=== PATIENT | male | born 1965 | race Caucasian/White ===

== ENCOUNTER 2018-09-08 11:53 | Emergency (ER) | payer OTHER ==
[2018-09-08] MEDS: Tetan/Diph/Pertus SYR(Tdap)* 0.5 ML SYR(BOOSTRIX) use SYR IM ONE (12:46)
--- NOTE | 2018-09-08 12:46 | UC ---
Laceration HPI - HPI Summary HPI Summary: 53 year old male presents with laceration to L wrist after cutting trees near home. Patient believes wrist was cut by wood. unsure of last Tdap. no other medical problems. full ROM/ sensation of wrist - History Of Current Complaint Chief Complaint: UCLaceration Stated Complaint: LACERATION Time Seen by Provider: 09/08/18 12:07 Hx Obtained From: Patient, Family/Master Chef - mother Laceration Location: Wrist - left Mechanism Of Injury: FB Potential Onset/Duration: Sudden Onset Severity: Mild Pain Intensity: 3 Pain Scale Used: 0-10 Numeric Aggravating Factors: Nothing - Allergies/Home Medications Allergies/Adverse Reactions: Allergies Allergy/AdvReac Type Severity Reaction Status Date / Time No Known Allergies Allergy Verified 09/08/18 12:10 PMH/Surg Hx/FS Hx/Imm Hx Previously Healthy: Yes - Surgical History Surgical History: None - Social History Alcohol Use: Rare Substance Use Type: None Smoking Status (MU): Never Smoked Tobacco - Immunization History Most Recent Tetanus Shot: will need Review of Systems All Other Systems Reviewed And Are Negative: Yes Constitutional: Positive: Negative Skin: Positive: Bruising, Other - laceration wrist left Musculoskeletal: Positive: Arthralgia, Myalgia Neurological: Positive: Negative Psychological: Positive: Negative Is Patient Immunocompromised?: No Physical Exam Triage Information Reviewed: Yes Appearance: Well-Appearing, No Pain Distress, Well-Nourished Vital Signs: Initial Vital Signs Temp 97.9 F 09/08/18 12:06 Pulse 72 09/08/18 12:06 Resp 20 09/08/18 12:06 BP 140/87 09/08/18 12:06 Pulse Ox 98 09/08/18 12:06 Vital Signs Reviewed: Yes Musculoskeletal Exam: Normal - Left wrist, fingers Musculoskeletal: Positive: Strength Intact, ROM Intact - L wrist, fingers. Full sensation L hand., No Edema Neurological Exam: Normal Neurological: Positive: Other: - patient became diaphoretic and lightheaded during examination, no syncope- improved with water and supine, no furher episodes Psychological Exam: Normal Skin: Positive: Other - 4cm laceration L wrist, full thickness, tendons exposed however intact Procedures - Laceration/Wound Repair 1 Location: upper extremity - l wrist Anesthesia: 1.0%, Lido Length, Depth and Shape: 4cm x 1cm x 1 cm Laceration/Wound Explored: clean Closure: Single Layer Debridement: minimal Suture Type: Nylon Number of Sutures: 10 Layer Closure?: No Sterile Dressing Applied?: Yes Laceration Course/Dx - Course/Dx Course Of Treatment: area irrigated, examined with Dr Butler, discussed primary closure technique, edges approximated well, no complications, tolerated procedure well, minimal debridement, TdAP given, prophy abx given x 5 days, close follow up with PCP, ortho - Differential Dx - Laceration/Wound Differental Diagnoses: Joint Infection, Laceration - Diagnosis Provider Diagnosis: Laceration of left wrist without complication Discharge - Sign-Out/Discharge Documenting (check all that apply): Patient Departure All imaging exams completed and their final reports reviewed: No Studies - Discharge Plan Condition: Good Disposition: HOME Prescriptions: Cephalexin CAP* [Keflex CAP*] 500 mg PO TID #15 cap Patient Education Materials: Care For Your Stitches (ED), Laceration (ED) Referrals: No Primary Care Phys,NOPCP [Primary Care Provider] - Lisa Velasco MD [Medical Doctor] - 5 Days (follow up within 5 days for wound check, evaluation ) Additional Instructions: - Follow up with primary physician for wound check within 2-3 days - Continue wound dressing as shown - Go to ER with increased pain, decreased movement, increased swelling, fever - OK to shower in 48 hours, no submerging wound - Tylenol/ motrin as needed for pain - Keep area covered until sutures removed - antibiotics prophylaxis x 5 days - Follow up with an orthopedic within 5-7 days - Wear splint at all times when up/ active - Two types of sutures- black- mattress sutures x 2 - Blue- Simple sutures - Billing Disposition and Condition Condition: GOOD Disposition: Home
[2018-09-08] MEDS: Lidocaine 1% MPF ** 5 ML VIAL INJ ONE (12:51)
== END 2018-09-08 14:04 | disposition home or self-care (01) ==
LOC: UCEAST 11:53
DX: S61.512A Laceration without foreign body of left wrist, initial encounter (principal); W45.8XXA Other foreign body or object entering through skin, initial encounter; Y93.89 Activity, other specified; Y92.007 Garden or yard of unspecified non-institutional (private) residence as the place of occurrence of the external cause; Z23 Encounter for immunization
CPT/HCPCS: 12032; 90715; 99203; G0463